=== PATIENT | female | born 1960 | race African-American/Black ===

== ENCOUNTER 2016-10-31 13:39 | Inpatient (IN) | payer OTHER ==
[2016-10-31 14:46] VITALS: BMI 27.1
--- NOTE | 2016-10-31 15:05 | HP ---
CIWA Score - CIWA Score Nausea/Vomitin-No Nausea/No Vomiting Muscle Tremors: 3 Anxiety: 4-Mod. Anxious/Guarded Agitation: 3 Paroxysmal Sweats: 1-Minimal Palms Moist Orientation: 0-Oriented Tacttile Disturbances: 3-Moderate Itch/Numb/Burn Auditory Disturbances: 0-None Visual Disturbances: 0-None Headache: 0-None Present CIWA-Ar Total Score: 14 Admission ROS BHS - HPI Chief Complaint: DETOX TX FOR ALCOHOL DEPENDENCE Allergies/Adverse Reactions: Allergies Allergy/AdvReac Type Severity Reaction Status Date / Time No Known Allergies Allergy Verified 10/31/16 15:00 History of Present Illness: 56 Y/O AA/FEMALE WITH A HX OF ALCOHOL,COCAINE AND MARIJUANA DEPENDENCE SEEKING DETOX TX Exam Limitations: No Limitations - Ebola screening Have you traveled outside of the country in the last 21 days: No Have you had contact with anyone from an Ebola affected area: No Have you been sick,other than usual withdrawal symptoms: No Do you have a fever: No - Review of Systems Constitutional: Night Sweats EENT: reports: Blurred Vision, Tearing, Nose Congestion, Dental Problems ( DENTURES TOP/BOTTOM) Respiratory: reports: Shortness of Breath (ASTHMA HX), Wheezing Cardiac: reports: Chest Pain (SOMETIMES BUT UNRELATED TO HEART...TOLD IT WAS CHEST COLD.), Lightheadedness GI: reports: Poor Fluid Intake : reports: Frequency Musculoskeletal: reports: Back Pain, Joint Pain, Muscle Pain, Other (HX ARTHRITIS) Integumentary: reports: No Symptoms Reported, Sweating Neuro: reports: Headache, Unsteady Gait, Dizziness Endocrine: reports: No Symptoms Reported Hematology: reports: No Symptoms Reported Psychiatric: reports: Orientated x3, Anxious, Depressed Other Systems: Reviewed and Negative Patient History - Patient Medical History Hx Anemia: No Hx Asthma: Yes (MDI) Hx Chronic Obstructive Pulmonary Disease (COPD): No Hx Cardiac Disorders: No Hx Hypertension: No Hx Hypercholesterolemia: No HX Cerebrovascular Accident: No Hx Seizures: No Hx Diabetes: No Hx Gastrointestinal Disorders: No Hx Genitourinary Disorders: No Hx Sexually Transmitted Disorders: No Hx Renal Disease (ESRD): No Hx Thyroid Disease: No Hx Human Immunodeficiency Virus (HIV): No (NEGATIVE HX) Hx Hepatitis C: No Hx Depression: Yes (NO CURRENT MED) Hx Suicide Attempt: No (DENIES) Hx Bipolar Disorder: No Hx Schizophrenia: No - Patient Surgical History Past Surgical History: Yes Hx Neurologic Surgery: No Hx Cataract Extraction: No Hx Cardiac Surgery: No Hx Lung Surgery: No Hx Breast Surgery: No Hx Breast Biopsy: No Hx Abdominal Surgery: No Hx Appendectomy: No Hx Cholecystectomy: No Hx Genitourinary Surgery: No Hx Section: Yes (X 2 IN 1971 & 1985) Hx Orthopedic Surgery: No Hx Hysterectomy: No Anesthesia Reaction: No - PPD History Previous Implant?: Yes Documented Results: Negative w/o proof Implanted On Prior R Admission?: No PPD to be Administered?: Yes - Reproductive History Patient is a Female of Child Bearing Age (11 -55 yrs old): Yes (POST MENOPAUSAL WOMAN) LMP comment: 10 YRS AGO Patient : No - Smoking Cessation Smoking history: Current every day smoker Have you smoked in the past 12 months: Yes Aproximately how many cigarettes per day: 4 Hx Chewing Tobacco Use: No Initiated information on smoking cessation: Yes 'Breaking Loose' booklet given: 10/31/16 - Substance & Tx. History Hx Alcohol Use: Yes (BHARATH/ERWIN) Hx Substance Use: Yes (COCAINE/MARIJUANA) Substance Use Type: Alcohol, Cocaine, Marijuana Hx Substance Use Treatment: Yes (LAST TX AT [facility]) - Substances Abused Alcohol Route: Oral Frequency: Daily Amount used: 2 PTS Age of first use: 9 Date of Last Use: 10/30/16 Cocaine Route: Smoking Frequency: 3-6 times per week Amount used: $200 Age of first use: 35 Date of Last Use: 10/30/16 Marijuana/Hashish Route: Smoking Frequency: Daily Amount used: 3 BLUNTS Age of first use: 8 Date of Last Use: 10/30/16 Family Disease History - Family Disease History Family Disease History: Other: Mother (HTN) Admission Physical Exam BHS - Vital Signs Vital Signs: Vital Signs - 24 hr 10/31/16 14:43 Temperature 96.4 F L Pulse Rate 96 H Respiratory 20 Rate Blood Pressure 118/81 - Physical General Appearance: Yes: Moderate Distress, Irritable, Anxious HEENTM: Yes: EOMI, Normocephalic, JOSE M, Pharynx Normal Respiratory: Yes: Chest Non-Tender, Lungs Clear, Normal Breath Sounds, No Respiratory Distress Neck: Yes: No masses,lesions,Nodules, Supple, Trachea in good position Breast: Yes: Breast Exam Deferred Cardiology: Yes: Regular Rhythm, Regular Rate, S1, S2 Abdominal: Yes: Normal Bowel Sounds, Non Tender, Soft Genitourinary: Yes: Other (N/C) Musculoskeletal: Yes: full range of Motion, Gait Steady Extremities: Yes: Normal Range of Motion, Non-Tender Neurological: Yes: residential property manager II-XII NML intact, Fully Oriented, Alert Integumentary: Yes: Dry, Warm Lymphatic: Yes: Within Normal Limits - Diagnostic (1) Alcohol dependence with uncomplicated withdrawal Current Visit: Yes Status: Acute (2) Cocaine dependence, uncomplicated Current Visit: Yes Status: Acute (3) Cannabis dependence, uncomplicated Current Visit: Yes Status: Acute (4) Asthma Current Visit: Yes Status: Chronic Qualifiers: Asthma severity: mild intermittent Asthma complication type: uncomplicated Qualified Code(s): J45.20 - Mild intermittent asthma, uncomplicated (5) History of arthritis Current Visit: Yes Status: Chronic Cleared for Admission [facility] - Detox or Rehab [facility] Level of Care: Medically Managed Detox Regimen/Protocol: Librium [facility] Breath Alcohol Content Breath Alcohol Content: 0 Urine Pregancy Test - Result Urine Test Results: Negative- NO Line Present Urine Drug Screen - Results Drug Screen Negative: No Urine Drug Screen Results: THC-Marijuana, MIGUEL-Cocaine
[2016-10-31] MEDS ORDERED: MENTHOL/PHENOL 1 EACH UD MM PRN (15:18)
[2016-10-31] MEDS ORDERED: LOPERAMIDE HCL 2 MG CAPSULE PO PRN (15:18)
[2016-10-31] MEDS ORDERED: MAGNESIUM HYDROX 2400MG/30ML ORAL SUSPENSION 30 ML CUP PO PRN (15:18)
[2016-10-31] MEDS ORDERED: diphenhydrAMINE HCL 50 MG CAPSULE PO PRN (15:18)
[2016-10-31] MEDS ORDERED: chlordiazePOXIDE HCL 25 MG CAPSULE PO PRN (15:18)
[2016-10-31] MEDS ORDERED: P-EPHED 60MG/TRIPROLIDI 2.5MG TABLET PO PRN (15:18)
[2016-10-31] MEDS ORDERED: MAGNESIUM CITRATE 300 ML BOTTLE PO PRN (15:18)
[2016-10-31] MEDS ORDERED: guaiFENesin/D-METHORPHAN HB 10 ML UNIT-DOSE CUPS PO PRN (15:18)
[2016-10-31] MEDS ORDERED: ACETAMINOPHEN 325 MG TABLET (FP) PO PRN (15:18)
[2016-10-31] MEDS ORDERED: NICOTINE POLACRILEX 2 MG GUM BUC PRN (15:18)
[2016-10-31] MEDS ORDERED: IBUPROFEN 400 MG TABLET (FP) PO PRN (15:18)
[2016-10-31] MEDS ORDERED: MAG HYDROX/AL HYDROX/SIMETH 30 ML UNIT-DOSE CUP PO PRN (15:18)
[2016-10-31] MEDS ORDERED: hydrOXYzine PAMOATE 25 MG CAPSULE (FP) PO PRN (15:18)
[2016-10-31] MEDS ORDERED: chlordiazePOXIDE HCL 25 MG CAPSULE PO ONE (17:45)
[2016-10-31] MEDS: chlordiazePOXIDE HCL 25 MG CAPSULE PO SCH ×2 (18:02→22:42)
[2016-10-31] MEDS: NICOTINE 14 MG/24 HOURS TOPICAL PATCH TD SCH (18:05)
[2016-10-31] MEDS: THIAMINE HCL 100 MG TABLET (FP) PO SCH (22:42)
[2016-10-31 23:44] LABS: URINE APPEARANCE SLCLOUDY; URINE BILIRUBIN NEGATIVE (NEGATIVE); URINE BLOOD NEGATIVE (NEGATIVE); URINE COLOR AMBER; URINE GLUCOSE (UA) NEGATIVE (NEGATIVE); URINE KETONE TRACE (NEGATIVE); URINE LEUK ESTERASE NEGATIVE (NEGATIVE); URINE NITRITE NEGATIVE (NEGATIVE)
[2016-10-31 23:55] LABS: URINE PROTEIN 1+ (NEGATIVE)
[2016-11-01 00:35] LABS: URINE HYALINE CAST 2 /lpf; URINE MUCUS MANY; URINE RBC 5 /hpf (0-3); URINE WBC 5 /hpf (3-5)
[2016-11-01] MEDS: chlordiazePOXIDE HCL 25 MG CAPSULE PO SCH ×4 (06:39→22:32)
[2016-11-01] MEDS: ALBUTEROL SO4 6.7 GM HFA INHALER IH PRN (06:42)
[2016-11-01 09:55] LABS: MCH 28.9 pg (25.7-33.7); MCHC 32.9 g/dl (32.0-36.0); MEAN CELL VOLUME 87.8 fl (80-96); MEAN PLT VOLUME 8.8 fl (7.5-11.1); PLATELET COUNT 227 K/MM3 (134-434); RDW 14.5 % (11.6-15.6); WHITE BLOOD COUNT 7.2 K/mm3 (4.0-10.0)
[2016-11-01 10:06] LABS: ALBUMIN 3.1 g/dl (3.4-5.0); CALCIUM 8.9 mg/dL (8.5-10.1)
--- NOTE | 2016-11-01 10:12 | CONSULT ---
[facility] Psychiatric Consult - Data Date of interview: 11/01/16 Admission source: [facility] Identifying data: This is 56 years old female with psychiatric hospitalization history, intoxicated with: Alcohol, Cocaine, Cannabis and Nicotine Substance Abuse History: - Smoking Cessation. Smoking history: Current every day smoker. Have you smoked in the past 12 months: Yes. Aproximately how many cigarettes per day: 4. Hx Chewing Tobacco Use: No. Initiated information on smoking cessation: Yes. 'Breaking Loose' booklet given: 10/31/16. - Substance & Tx. History. Hx Alcohol Use: Yes (BHARATH/ERWIN). Hx Substance Use: Yes (COCAINE/MARIJUANA). Substance Use Type: Alcohol, Cocaine, Marijuana. Hx Substance Use Treatment: Yes (LAST TX AT [facility]). - Substances Abused. Alcohol. Route: Oral. Frequency: Daily. Amount used: 2 PTS. Age of first use : 9. Date of Last Use: 10/30/16. Cocaine. Route: Smoking. Frequency: 3- 6 times per week. Amount used: $200. Age of first use: 35. Date of Last Use: 10/30/16. Marijuana/Hashish. Route: Smoking. Frequency: Daily. Amount used: 3 BLUNTS. Age of first use: 8. Date of Last Use: 10/30/16 Medical History: Asthma, Arthritis history, Obesity, Asthma Psychiatric History: Reports unclear psychiatric admission 10 years ago, reports no medications taking prior to admission Physical/Sexual Abuse/Trauma History: Denies Additional Comment: Observation. Detox Unit Care Protocol Mental Status Exam - Mental Status Exam Alert and Oriented to: Person Cognitive Function: Fair Patient Appearance: Unkempt Mood: Sad Affect: Flat Patient Behavior: Sedated Speech Pattern: Delayed Voice Loudness: Mildly Soft/Quiet Thought Process: Goal Oriented Thought Disorder: Being Controlled Hallucinations: Denies Suicidal Ideation: Denies Homicidal Ideation: Denies Insight/Judgement: Fair Sleep: Difficulty falling asleep Appetite: Weight gain Muscle strength/Tone: Mild Hypotonicity Gait/Station: Shuffling Additional Comments: Observation. Detox Unit Care Protocol Psychiatric Findings - Problem List ([place] 1, 2,3) (1) Alcohol dependence with uncomplicated withdrawal Current Visit: Yes Status: Acute (2) Cannabis dependence, uncomplicated Current Visit: Yes Status: Acute (3) Cocaine dependence, uncomplicated Current Visit: Yes Status: Acute (4) Nicotine dependence Current Visit: Yes Status: Acute (5) Drug-induced mood disorder Current Visit: Yes Status: Acute - Initial Treatment Plan Initial Treatment Plan: Observation. Detox Unit Care Protocol
[2016-11-01 10:31] LABS: ALK PHOS 78 U/L (45-117); ANION GAP 7 (8-16); BILIRUBIN,TOTAL 0.6 mg/dL (0.2-1.0); CO2 31 mmol/L (21-32); CREATININE 0.8 mg/dL (0.55-1.02); GLUCOSE,RANDOM 87 mg/dL (74-106); SGOT/AST 11 U/L (15-37); SGPT/ALT 17 U/L (12-78); TOT PROT 6.6 g/dl (6.4-8.2)
[2016-11-01 10:32] LABS: SICKLE CELL SCREEN NEGATIVE (NEGATIVE)
[2016-11-01 10:50] LABS: HIV 1 & 2 AB NEGATIVE; HIV 1 AGp24 NEGATIVE
[2016-11-01] MEDS: PRENATAL VITAMINS W/ FOLIC ACID TABLET (FP) PO SCH (10:56)
[2016-11-01] MEDS: NICOTINE 14 MG/24 HOURS TOPICAL PATCH TD SCH (10:56)
--- NOTE | 2016-11-01 10:57 | PN ---
S CIWA - CIWA Score Nausea/Vomitin-No Nausea/No Vomiting Muscle Tremors: 4-Moderate,w/Arms Extend Anxiety: 3 Agitation: 4-Moderately Restless Paroxysmal Sweats: 3 Orientation: 0-Oriented Tacttile Disturbances: 0-None Auditory Disturbances: 0-None Visual Disturbances: 0-None Headache: 0-None Present CIWA-Ar Total Score: 14 BHS Progress Note (SOAP) Subjective: irritable agitation anxiety sweats interrupted sleep Objective: 11/01/16 10:48 Vital Signs Temperature 97.9 F 11/01/16 10:07 Pulse Rate 83 11/01/16 10:07 Respiratory Rate 16 11/01/16 10:07 Blood Pressure 104/61 11/01/16 10:07 O2 Sat by Pulse Oximetry (%) Laboratory Tests 10/31/16 11/01/16 11/01/16 Unknown 07:40 07:40 WBC 7.2 RBC 4.64 Hgb 13.4 Hct 40.7 MCV 87.8 MCH 28.9 MCHC 32.9 RDW 14.5 Plt Count 227 MPV 8.8 Sickle Cell Screen Negative Sodium 141 Potassium 3.7 Chloride 103 Carbon Dioxide 31 Anion Gap 7 L BUN 9 Creatinine 0.8 Creat Clearance w eGFR > 60 Random Glucose 87 Calcium 8.9 Total Bilirubin 0.6 AST 11 L ALT 17 Alkaline Phosphatase 78 Total Protein 6.6 Albumin 3.1 L Urine Color Julita Urine Appearance Slcloudy Urine pH 5.0 Urine Protein 1+ H Urine Glucose (UA) Negative Urine Ketones Trace H Urine Blood Negative Urine Nitrite Negative Urine Bilirubin Negative Urine Urobilinogen 2.0 H Ur Leukocyte Esterase Negative Urine RBC 5 Urine WBC 5 Ur Epithelial Cells Few Hyaline Casts 2 Urine Mucus Many awake/alert ambulating no acute distress Assessment: 11/01/16 10:57 withdrawal sx Plan: continue detox increase fluids
--- NOTE | 2016-11-01 14:50 | EKG ---
Test Reason : Blood Pressure : / mmHG Vent. Rate : 078 BPM Atrial Rate : 078 BPM P-R Int : 160 ms QRS Dur : 086 ms QT Int : 404 ms P-R-T Axes : -05 063 055 degrees QTc Int : 460 ms NORMAL SINUS RHYTHM NORMAL ECG NO PREVIOUS ECGS AVAILABLE Confirmed by DENIZ TSAI MD ([id number]) on 11/01/2016 2:50:32 PM Referred By: Confirmed By:DENIZ TSAI MD
[2016-11-01] MEDS: THIAMINE HCL 100 MG TABLET (FP) PO SCH (22:33)
[2016-11-02] MEDS: chlordiazePOXIDE HCL 25 MG CAPSULE PO SCH ×2 (05:45→10:50)
[2016-11-02] MEDS: ALBUTEROL SO4 6.7 GM HFA INHALER IH PRN ×2 (05:57→10:50)
[2016-11-02] MEDS ORDERED: RANITIDINE HCL 150 MG TABLET (FP) PO SCH (10:15)
[2016-11-02 10:31] VITALS: TEMP 98.2
[2016-11-02] MEDS: NICOTINE 14 MG/24 HOURS TOPICAL PATCH TD SCH (10:50)
[2016-11-02] MEDS: PRENATAL VITAMINS W/ FOLIC ACID TABLET (FP) PO SCH (10:50)
--- NOTE | 2016-11-02 11:38 | PN ---
[facility] CIWA - CIWA Score Nausea/Vomitin-No Nausea/No Vomiting Muscle Tremors: 3 Anxiety: 2 Agitation: 3 Paroxysmal Sweats: 3 Orientation: 0-Oriented Tacttile Disturbances: 0-None Auditory Disturbances: 0-None Visual Disturbances: 0-None Headache: 0-None Present CIWA-Ar Total Score: 11 [facility] Progress Note (SOAP) Subjective: irritable agitation interrupted sleep sweats Objective: 11/02/16 11:37 Vital Signs Temperature 98.2 F 11/02/16 10:30 Pulse Rate 81 11/02/16 10:30 Respiratory Rate 16 11/02/16 10:30 Blood Pressure 128/82 11/02/16 10:30 O2 Sat by Pulse Oximetry (%) Laboratory Tests 10/31/16 11/01/16 11/01/16 Unknown 07:40 07:40 WBC 7.2 RBC 4.64 Hgb 13.4 Hct 40.7 MCV 87.8 MCH 28.9 MCHC 32.9 RDW 14.5 Plt Count 227 MPV 8.8 Sickle Cell Screen Negative Sodium 141 Potassium 3.7 Chloride 103 Carbon Dioxide 31 Anion Gap 7 L BUN 9 Creatinine 0.8 Creat Clearance w eGFR > 60 Random Glucose 87 Calcium 8.9 Total Bilirubin 0.6 AST 11 L ALT 17 Alkaline Phosphatase 78 Total Protein 6.6 Albumin 3.1 L Urine Color Julita Urine Appearance Slcloudy Urine pH 5.0 Ur Specific [place] >= 1.030 H Urine Protein 1+ H Urine Glucose (UA) Negative Urine Ketones Trace H Urine Blood Negative Urine Nitrite Negative Urine Bilirubin Negative Urine Urobilinogen 2.0 H Ur Leukocyte Esterase Negative Urine RBC 5 Urine WBC 5 Ur Epithelial Cells Few Hyaline Casts 2 Urine Mucus Many RPR Titer HIV 1&2 Antibody Screen HIV P24 Antigen 11/01/16 11/01/16 07:40 07:40 WBC RBC Hgb Hct MCV MCH MCHC RDW Plt Count MPV Sickle Cell Screen Sodium Potassium Chloride Carbon Dioxide Anion Gap BUN Creatinine Creat Clearance w eGFR Random Glucose Calcium Total Bilirubin AST ALT Alkaline Phosphatase Total Protein Albumin Urine Color Urine Appearance Urine pH Ur Specific [place] Urine Protein Urine Glucose (UA) Urine Ketones Urine Blood Urine Nitrite Urine Bilirubin Urine Urobilinogen Ur Leukocyte Esterase Urine RBC Urine WBC Ur Epithelial Cells Hyaline Casts Urine Mucus RPR Titer Nonreactive HIV 1&2 Antibody Screen Negative HIV P24 Antigen Negative awake/alert ambulating no acute distress Assessment: 11/02/16 11:37 withdrawal sx Plan: continue detox increase fluids
[2016-11-02] MEDS ORDERED: chlordiazePOXIDE 5 MG CAPSULE PO SCH (17:00)
[2016-11-02 17:45] VITALS: BP 120/70; PULSE 83
--- NOTE | 2016-11-02 19:33 | PN ---
[facility] Progress Note Note: patient did not want to complete treatment,signed release ama,seen by counselor, did not want to wait
--- NOTE | 2016-11-02 19:38 | DS ---
[facility] Detox Discharge Summary Admission Date: 10/31/16 Discharge Date: 11/02/16 - History Present History: Alcohol Dependence, Cannabis Dependence, Cocaine Dependence Additional Comments: patient did not want to complete treatment,seen by counselor,signed release ama, did not want to wait Pertinent Past History: asthma arthritis nicotine dependence - Physical Exam Results Vital Signs: Vital Signs Temperature 98.2 F 11/02/16 17:45 Pulse Rate 83 11/02/16 17:45 Respiratory Rate 18 11/02/16 17:45 Blood Pressure 120/70 11/02/16 17:45 O2 Sat by Pulse Oximetry (%) Pertinent Admission Physical Exam Findings: withdrawal symptom - Medication Discharge Medications: Ambulatory Orders Albuterol Sulfate Inhaler - [Ventolin Hfa Inhaler -] 2 inh PO Q4H PRN 10/31/16 - AMA Did Patient Leave Against Medical Advice: Yes
[2016-11-03] MEDS ORDERED: chlordiazePOXIDE HCL 10 MG CAPSULE PO SCH (17:00)
== END 2016-11-02 18:00 | disposition left against medical advice (07) | DRG 770 ==
LOC: YASAS 13:39 → Y6N 16:43
PROVIDERS: ADMIT Internal Medicine; ATTEND Internal Medicine
PROC: HZ2ZZZZ Detoxification Services for Substance Abuse Treatment (ICD-10-PCS; principal; 2016-10-31)
DX: F10.230 Alcohol dependence with withdrawal, uncomplicated (principal); F14.20 Cocaine dependence, uncomplicated; F12.20 Cannabis dependence, uncomplicated; F17.210 Nicotine dependence, cigarettes, uncomplicated; F19.24 Other psychoactive substance dependence with psychoactive substance-induced mood disorder; J45.20 Mild intermittent asthma, uncomplicated; E66.9 Obesity, unspecified; Z68.27 Body mass index [BMI] 27.0-27.9, adult; Z87.39 Personal history of other diseases of the musculoskeletal system and connective tissue
CPT/HCPCS: 36415; 71010-TC; 80053; 81003; 81015; 85027; 85660; 86593; 87389; 93005; 93010